=== PATIENT | female | born 1945 | race Caucasian/White ===

== ENCOUNTER 2020-10-30 21:35 | Emergency (ER) | payer MEDICARE ==
[~2020-10-30] VITALS: Ht 144.8 cm; Wt 81.6 kg
[2020-10-30 23:00] VITALS: BP 162/96
== END 2020-10-30 23:00 | disposition home or self-care (01) ==
LOC: FSED 21:58
DX: S40.012A Contusion of left shoulder, initial encounter (principal); S70.02XA Contusion of left hip, initial encounter; W18.30XA Fall on same level, unspecified, initial encounter; Y93.01 Activity, walking, marching and hiking; Y92.003 Bedroom of unspecified non-institutional (private) residence as the place of occurrence of the external cause; I25.10 Atherosclerotic heart disease of native coronary artery without angina pectoris; J44.9 Chronic obstructive pulmonary disease, unspecified; Z95.1 Presence of aortocoronary bypass graft
CPT/HCPCS: 99283